=== PATIENT | female | born 1940 | race Caucasian/White ===

== ENCOUNTER 2016-11-25 17:58 | Inpatient (IN) | payer MEDICARE ==
[2016-11-25] MEDS ORDERED: SODIUM CHLORIDE 0.9% 1,000 ML IV ONE (19:55)
[2016-11-25] MEDS ORDERED: HYDROmorphone 1 MG/ML 1 ML SYRINGE IVP STA (19:55)
--- NOTE | 2016-11-25 20:01 | ED ---
Abdominal Pain HPI <Quinton Vila - Last Filed: 11/25/16 22:27> - General Source: patient, RN notes reviewed Mode of arrival: ambulatory Limitations: no limitations <Adrianne Cullen - Last Filed: 11/25/16 23:03> - General Chief Complaint: Abdominal Pain Stated Complaint: abd pain Time Seen by Provider: 11/25/16 19:39 - History of Present Illness Initial Comments: Patient is a 76-year-old female presents emergency room for evaluation of abdominal pain. Patient states been having abdominal pain for the past month. Patient states she went to [facility] about a Week Ago and Was Diagnosed with Diverticulitis. Patient States She's Been on Clindamycin. Patient States Symptoms Began to Improve, but today it began to worsen. Patient states she's having 10 out of 10 pain. Patient denies any current diarrhea. Patient states she did have nausea and vomiting earlier today. Patient denies chest pain or shortness of breath. Patient states she's been having on and off hot flashes. Patient denies headache or dizziness. Patient denies blood in stools. Patient denies dark tarry stools. Patient denies any recent travel outside the country. Patient states she has a history of hysterectomy. Patient denies any other history of abdominal surgeries. (Adrianne Cullen) - Related Data Home Medications Medication Instructions Recorded Confirmed Allopurinol [Zyloprim] 300 mg PO DAILY 02/09/16 11/25/16 Aspirin [Adult Low Dose Aspirin EC] 81 mg PO DAILY 02/09/16 11/25/16 Atenolol [Tenormin] 50 mg PO DAILY 02/09/16 11/25/16 Cholecalciferol [Vitamin D3] 2,000 unit PO DAILY 02/09/16 11/25/16 Colchicine [Colcrys] 0.6 mg PO DAILY PRN 02/09/16 11/25/16 Fish Oil/Dha/Epa [Fish Oil 1,200 2 cap PO DAILY 02/09/16 11/25/16 mg Fish Oil] Folic Acid 1 mg PO DAILY 02/09/16 11/25/16 Hydrochlorothiazide [Hydrodiuril] 50 mg PO DAILY 02/09/16 11/25/16 Methotrexate Sodium [Methotrexate] 12.5 mg PO TH 02/09/16 11/25/16 SUMAtriptan SUCCINATE [Imitrex] 25 mg PO BID PRN 02/09/16 11/25/16 Tri-[place] Plus 2 cap PO DAILY 02/09/16 11/25/16 Ubiquinol 100 mg PO BID 02/09/16 11/25/16 Biotin 2,500 mcg PO DAILY 11/25/16 11/25/16 Clindamycin HCl [Cleocin] 300 mg PO Q8H 11/25/16 11/25/16 Allergies Allergy/AdvReac Type Severity Reaction Status Date / Time Penicillins Allergy Anaphylaxis Verified 11/25/16 20:33 levofloxacin [From Levaquin] AdvReac Severe Tendonitis Verified 11/25/16 20:33 Review of Systems ROS Other: All systems not noted in ROS Statement are negative. <Quinton Vila - Last Filed: 11/25/16 22:27> ROS Other: All systems not noted in ROS Statement are negative. <Adrianne Cullen - Last Filed: 11/25/16 23:03> ROS Statement: Those systems with pertinent positive or pertinent negative responses have been documented in the HPI. Past Medical History Past Medical History: Hypertension, Osteoarthritis (OA), Rheumatoid Arthritis ( RA) Additional Past Medical History / Comment(s): gout, migraines, diverticulitis History of Any Multi-Drug Resistant Organisms: None Reported Past Surgical History: Hysterectomy, Joint Replacement, Orthopedic Surgery, Tonsillectomy Additional Past Surgical History / Comment(s): cataracts, carpal tunel, lt knee Past Psychological History: No Psychological Hx Reported Smoking Status: Never smoker Past Alcohol Use History: Occasional Past Drug Use History: None Reported <Adrianne Cullen - Last Filed: 11/25/16 23:03> General Exam <Quinton Vila - Last Filed: 11/25/16 22:27> Limitations: no limitations General appearance: alert, in no apparent distress Head exam: Present: atraumatic, normocephalic, normal inspection Eye exam: Present: normal appearance ENT exam: Present: normal exam Neck exam: Present: normal inspection Respiratory exam: Present: normal lung sounds bilaterally. Absent: respiratory distress Cardiovascular Exam: Present: regular rate, normal rhythm, normal heart sounds GI/Abdominal exam: Present: soft, tenderness (LLQ), guarding (Voluntary guarding over left lower quadrant), normal bowel sounds. Absent: distended, rebound, rigid Extremities exam: Present: normal inspection Back exam: Present: normal inspection Neurological exam: Present: alert, oriented X3, CN II-XII intact, normal gait Psychiatric exam: Present: normal affect, normal mood Skin exam: Present: warm, dry, intact, normal color. Absent: rash <Adrianne Cullen - Last Filed: 11/25/16 23:03> - General Exam Comments Initial Comments: Sitting in exam room, no acute distress. (Adrianne Cullen) Medical Decision Making - Lab Data Result diagrams: 11/25/16 20:37 11/25/16 20:37 <Quinton Vila - Last Filed: 11/25/16 22:27> - Lab Data Result diagrams: 11/25/16 20:37 11/25/16 20:37 <Adrianne Cullen - Last Filed: 11/25/16 23:03> - Medical Decision Making Medical decision making; patient has been treated with Flagyl and clindamycin for diverticulitis. She reports oral Flagyl is irritating her. She does have ALLERGY to penicillin and Levaquin. Patient was diagnosed at [facility] with diverticulitis. She was initially getting good results with the Flagyl but was had to be switched over to clindamycin because of not tolerating it orally. Examination of the abdomen was soft no rebound or referred pain. The plant this time patient be admitted started on IV Flagyl and cefuroxime. Patient reports no adverse reaction to cephalosporins. Patient will have rehydration and medication for nausea. With consultation from GI. Dr. Vila ( Quinton Vila) - Lab Data Lab Results 11/25/16 11/25/16 11/25/16 Range/Units 20:37 20:37 20:37 WBC 12.8 H (3.8-10.6) k/uL RBC 4.27 (3.80-5.40) m/uL Hgb 13.3 (11.4-16.0) gm/dL Hct 38.9 (34.0-46.0) % MCV 91.0 (80.0-100.0) fL MCH 31.1 (25.0-35.0) pg MCHC 34.1 (31.0-37.0) g/dL RDW 15.9 H (11.5-15.5) % Plt Count 296 (150-450) k/uL Neutrophils % 88 % Lymphocytes % 7 % Monocytes % 4 % Eosinophils % 0 % Basophils % 0 % Neutrophils # 11.2 H (1.3-7.7) k/uL Lymphocytes # 0.9 L (1.0-4.8) k/uL Monocytes # 0.5 (0-1.0) k/uL Eosinophils # 0.1 (0-0.7) k/uL Basophils # 0.0 (0-0.2) k/uL Sodium 138 (137-145) mmol/L Potassium 3.8 (3.5-5.1) mmol/L Chloride 96 L (98-107) mmol/L Carbon Dioxide 28 (22-30) mmol/L Anion Gap 14 mmol/L BUN 21 H (7-17) mg/dL Creatinine 0.80 (0.52-1.04) mg/dL Est GFR (MDRD) Af Amer >60 (>60 ml/min/1.73 sqM) Est GFR (MDRD) Non-Af >60 (>60 ml/min/1.73 sqM) Glucose 135 H (74-99) mg/dL Plasma Lactic Acid Jose Maria (0.7-2.0) mmol/L Calcium 10.4 H (8.4-10.2) mg/dL Total Bilirubin 0.7 (0.2-1.3) mg/dL AST 31 (14-36) U/L ALT 32 (9-52) U/L Alkaline Phosphatase 76 (38-126) U/L Total Protein 6.8 (6.3-8.2) g/dL Albumin 4.1 (3.5-5.0) g/dL Amylase 69 (30-110) U/L Lipase 98 (23-300) U/L Urine Color Urine Appearance (Clear) Urine pH (5.0-8.0) Ur Specific [place] (1.001-1.035) Urine Protein (Negative) Urine Glucose (UA) (Negative) Urine Ketones (Negative) Urine Blood (Negative) Urine Nitrite (Negative) Urine Bilirubin (Negative) Urine Urobilinogen (<2.0) mg/dL Ur Leukocyte Esterase (Negative) 11/25/16 11/25/16 Range/Units 20:37 20:38 WBC (3.8-10.6) k/uL RBC (3.80-5.40) m/uL Hgb (11.4-16.0) gm/dL Hct (34.0-46.0) % MCV (80.0-100.0) fL MCH (25.0-35.0) pg MCHC (31.0-37.0) g/dL RDW (11.5-15.5) % Plt Count (150-450) k/uL Neutrophils % % Lymphocytes % % Monocytes % % Eosinophils % % Basophils % % Neutrophils # (1.3-7.7) k/uL Lymphocytes # (1.0-4.8) k/uL Monocytes # (0-1.0) k/uL Eosinophils # (0-0.7) k/uL Basophils # (0-0.2) k/uL Sodium (137-145) mmol/L Potassium (3.5-5.1) mmol/L Chloride (98-107) mmol/L Carbon Dioxide (22-30) mmol/L Anion Gap mmol/L BUN (7-17) mg/dL Creatinine (0.52-1.04) mg/dL Est GFR (MDRD) Af Amer (>60 ml/min/1.73 sqM) Est GFR (MDRD) Non-Af (>60 ml/min/1.73 sqM) Glucose (74-99) mg/dL Plasma Lactic Acid Jose Maria 1.4 (0.7-2.0) mmol/L Calcium (8.4-10.2) mg/dL Total Bilirubin (0.2-1.3) mg/dL AST (14-36) U/L ALT (9-52) U/L Alkaline Phosphatase (38-126) U/L Total Protein (6.3-8.2) g/dL Albumin (3.5-5.0) g/dL Amylase (30-110) U/L Lipase (23-300) U/L Urine Color Light Yellow Urine Appearance Clear (Clear) Urine pH 7.5 (5.0-8.0) Ur Specific [place] 1.007 (1.001-1.035) Urine Protein Negative (Negative) Urine Glucose (UA) Negative (Negative) Urine Ketones 1+ H (Negative) Urine Blood Negative (Negative) Urine Nitrite Negative (Negative) Urine Bilirubin Negative (Negative) Urine Urobilinogen <2.0 (<2.0) mg/dL Ur Leukocyte Esterase Negative (Negative) Disposition <Quinton Vila - Last Filed: 11/25/16 22:27> Decision Date: 11/25/16 <Adrianne Cullen - Last Filed: 11/25/16 23:03> Clinical Impression: Diverticulitis, Failure of outpatient treatment Disposition: ADMITTED IP TO THIS HOSP Condition: Stable
[2016-11-25 20:55] LABS: Basophils % (A) 0 %; CH 31.3; CHCM 34.5; Eosinophils # (A) 0.1 k/uL (0-0.7); Eosinophils % (A) 0 %; HCT 38.9 % (34.0-46.0); HDW 2.93; HGB 13.3 gm/dL (11.4-16.0); Luc # (Auto) 0.09; Luc % (Auto) 1; Lymphocytes # (A) 0.9 k/uL (1.0-4.8); Lymphocytes % (A) 7 %; MCH 31.1 pg (25.0-35.0); MCHC 34.1 g/dL (31.0-37.0); Mean Platelet Volume 7.1; Monocytes # (A) 0.5 k/uL (0-1.0); Monocytes % (A) 4 %; Neutrophils # (A) 11.2 k/uL (1.3-7.7); Neutrophils % (A) 88 %; RBC 4.27 m/uL (3.80-5.40); RDW 15.9 % (11.5-15.5); WBC 12.8 k/uL (3.8-10.6); WBC (Perox) 12.45
[2016-11-25 21:04] LABS: ALT 32 U/L (9-52); AST 31 U/L (14-36); Alkaline Phosphatase 76 U/L (38-126); Amylase 69 U/L (30-110); Anion Gap 14 mmol/L; Blood Urea Nitrogen 21 mg/dL (7-17); Calcium 10.4 mg/dL (8.4-10.2); Carbon Dioxide 28 mmol/L (22-30); Chloride 96 mmol/L (98-107); Glucose 135 mg/dL (74-99); Non-African American GFR(MDRD) >60 (>60 ml/min/1.73 sqM); Potassium 3.8 mmol/L (3.5-5.1); Sodium 138 mmol/L (137-145); Total Bilirubin 0.7 mg/dL (0.2-1.3); Total Protein 6.8 g/dL (6.3-8.2)
[2016-11-25 21:18] LABS: Appearance,Urine Clear (Clear); Bilirubin,Urine Negative (Negative); Glucose,Urine (UA) Negative (Negative); Ketones,Urine 1+ (Negative); Leukocyte Esterase,Urine Negative (Negative); Nitrite,Urine Negative (Negative); PH, Urine 7.5 (5.0-8.0); Protein,Urine Negative (Negative); Specific Gravity,Urine 1.007 (1.001-1.035); UA Billing (MACRO vs. MICRO) CHEM; Urobilinogen,Urine <2.0 mg/dL (<2.0)
--- NOTE | 2016-11-25 21:51 | XR ---
History: Reason: Pain Exam: XR KUB 2 supine images to include the entire abdomen and pelvis Comparison: None available FINDINGS: No gaseous distention of bowel seen. No evidence of mass effect or abnormal abdominal calcification. Lumbar spondylosis/discogenic change noted. The visualized lung bases are clear. IMPRESSION: No gaseous distention of bowel seen. No evidence of mass effect or abnormal abdominal calcification.
[2016-11-25] MEDS ORDERED: HYDROmorphone 1 MG/ML 1 ML SYRINGE IV PRN (22:32)
[2016-11-25] MEDS ORDERED: NALOXONE 0.4 MG/ML 1 ML VIAL IV PRN (22:32)
[2016-11-25] MEDS ORDERED: ACETAMINOPHEN TAB 325 MG TAB PO PRN (22:32)
[2016-11-25] MEDS ORDERED: ONDANSETRON 4 MG/2 ML VIAL IVP PRN (22:32)
[2016-11-25] MEDS: SODIUM CHLORIDE 0.9% 1,000 ML IV SCH (23:10)
[2016-11-25] MEDS: metroNIDAZOLE-NS PMX 500 MG in SALINE 1 100ML.BAG IVPB SCH (23:38)
[2016-11-26 00:54] VITALS: BMI 20.7
[2016-11-26] MEDS: CEFUROXIME 1,500 MG in SODIUM CHLORIDE 0.9% 50 ML IVPB SCH ×3 (01:21→18:00)
[2016-11-26 06:14] LABS: Basophils % (A) 0 %; CH 31.1; CHCM 34.5; Eosinophils # (A) 0.1 k/uL (0-0.7); Eosinophils % (A) 1 %; HCT 33.7 % (34.0-46.0); HDW 2.92; HGB 11.4 gm/dL (11.4-16.0); Luc # (Auto) 0.12; Luc % (Auto) 1; Lymphocytes # (A) 1.4 k/uL (1.0-4.8); Lymphocytes % (A) 16 %; MCH 30.6 pg (25.0-35.0); MCHC 33.7 g/dL (31.0-37.0); MCV 90.6 fL (80.0-100.0); Mean Platelet Volume 6.8; Monocytes # (A) 0.4 k/uL (0-1.0); Monocytes % (A) 5 %; Neutrophils # (A) 7.1 k/uL (1.3-7.7); Neutrophils % (A) 77 %; RBC 3.72 m/uL (3.80-5.40); RDW 15.7 % (11.5-15.5); WBC 9.2 k/uL (3.8-10.6); WBC (Perox) 9.13
[2016-11-26 06:36] LABS: ALT 28 U/L (9-52); AST 21 U/L (14-36); Alkaline Phosphatase 57 U/L (38-126); Anion Gap 7 mmol/L; Blood Urea Nitrogen 18 mg/dL (7-17); Calcium 9.2 mg/dL (8.4-10.2); Carbon Dioxide 29 mmol/L (22-30); Chloride 100 mmol/L (98-107); Glucose 100 mg/dL (74-99); Non-African American GFR(MDRD) >60 (>60 ml/min/1.73 sqM); Potassium 3.5 mmol/L (3.5-5.1); Sodium 136 mmol/L (137-145); Total Bilirubin 0.5 mg/dL (0.2-1.3); Total Protein 5.4 g/dL (6.3-8.2)
[2016-11-26] MEDS ORDERED: SUMAtriptan SUCCINATE 25 MG TAB PO PRN (08:53)
[2016-11-26] MEDS ORDERED: UBIQUINOL 100 MG PO SCH (09:00)
[2016-11-26] MEDS ORDERED: BIOTIN 2500 MCG PO SCH (09:00)
[2016-11-26] MEDS ORDERED: [UNRECOGNIZED DRUG - OTHER] PO SCH (09:00)
[2016-11-26] MEDS: metroNIDAZOLE-NS PMX 500 MG in SALINE 1 100ML.BAG IVPB SCH ×4 (09:20→22:26)
[2016-11-26] MEDS ORDERED: NON-FORMULARY DRUG (Clindamycin Hcl [Cleocin] 300 MG) PO SCH (09:30)
[2016-11-26] MEDS ORDERED: CLINDAMYCIN 150 MG CAP PO SCH (09:30)
--- NOTE | 2016-11-26 10:25 | P.GSCN ---
History of Present Illness Consult date: 11/26/16 Reason for Consult: Abdominal pain History of present illness: The patient is a 76-year-old white female who presented to the emergency room with a complaint of increased left lower quadrant abdominal discomfort. The patient states that the pain started approximately 4 weeks ago while she was in [place]. She had previously undergone a pelvic floor repair several years ago in [place] and saw her healthcare administrator there. The pain did not resolve and she was seen at [facility] [place] and treated for diverticular disease with Flagyl. A CAT scan had been performed at [facility] which by history was consistent with diverticular disease. The patient developed nausea on the Flagyl and stopped this and her physician from [place] called in a prescription for clindamycin approximately 5 days ago. The patient's pain recurred on the clindamycin and she presented to the emergency room. The patient denies any fever but she has had chills. She denies any nausea at this time. The pain was located in the left lower quadrant. It did not radiate. It was sharp but intermittent in nature. The patient's last colonoscopy was approximately 2 years ago and she does not recall any bleeding of concern being discussed with her. Past surgical history: 1. Hysterectomy approximately 3 years ago does not know if this was removed 2. A pelvic floor repair approximately 2 years ago performed in [place] does not know if she has mesh present Past medical history: 1. Psoriatic arthritis 2. Hypertension 3. Gout Medications: 1. Methotrexate 2. Atenolol 3. Hydrochlorothiazide 4. Allopurinol ALLERGIES: 1. Levaquin 2. Penicillin Social history: Smoking negative Alcohol negative Marijuana negative 2 pregnancies 2 children Review of systems: HEENT: Negative Lungs: Negative Heart: Negative GI: As above : As above Review of Systems - Constitutional Reports as per HPI - Cardiovascular Reports as per HPI - Gastrointestinal Gastrointestinal Comment(s): Diverticular disease Reports as per HPI - Genitourinary Genitourinary Comment(s): Status post hysterectomy Pelvic floor repair Past Medical History Past Medical History: Hypertension, Osteoarthritis (OA), Rheumatoid Arthritis ( RA) Additional Past Medical History / Comment(s): gout, migraines, diverticulitis History of Any Multi-Drug Resistant Organisms: None Reported Past Surgical History: Hysterectomy, Joint Replacement, Orthopedic Surgery, Tonsillectomy Additional Past Surgical History / Comment(s): cataracts, carpal tunel, lt knee , complete repair of abdominal vault Past Anesthesia/Blood Transfusion Reactions: No Reported Reaction Past Psychological History: No Psychological Hx Reported Smoking Status: Never smoker Past Alcohol Use History: Occasional Past Drug Use History: None Reported - Past Family History Mother Family Medical History: No Reported History Medications and Allergies Home Medications Medication Instructions Recorded Confirmed Type Allopurinol [Zyloprim] 300 mg PO DAILY 02/09/16 11/26/16 History Aspirin [Adult Low Dose Aspirin EC] 81 mg PO DAILY 02/09/16 11/26/16 History Atenolol [Tenormin] 50 mg PO DAILY 02/09/16 11/26/16 History Cholecalciferol [Vitamin D3] 2,000 unit PO DAILY 02/09/16 11/26/16 History Colchicine [Colcrys] 0.6 mg PO DAILY PRN 02/09/16 11/26/16 History Fish Oil/Dha/Epa [Fish Oil 1,200 2 cap PO DAILY 02/09/16 11/26/16 History mg Fish Oil] Folic Acid 1 mg PO BID 02/09/16 11/26/16 History Hydrochlorothiazide [Hydrodiuril] 50 mg PO DAILY 02/09/16 11/26/16 History Methotrexate Sodium [Methotrexate] 12.5 mg PO TH 02/09/16 11/26/16 History SUMAtriptan SUCCINATE [Imitrex] 25 mg PO BID PRN 02/09/16 11/26/16 History Tri-[place] Plus 2 cap PO DAILY 02/09/16 11/26/16 History Ubiquinol 100 mg PO BID 02/09/16 11/26/16 History Biotin 2,500 mcg PO DAILY 11/25/16 11/26/16 History Clindamycin HCl [Cleocin] 300 mg PO Q8H 11/25/16 11/26/16 History Allergies Allergy/AdvReac Type Severity Reaction Status Date / Time Penicillins Allergy Anaphylaxis Verified 11/26/16 00:59 levofloxacin [From Levaquin] AdvReac Severe Tendonitis Verified 11/26/16 00:59 Surgical - Exam Vital Signs Temp Pulse Resp BP Pulse Ox 99.5 F 75 18 192/88 100 11/25/16 19:01 11/25/16 19:01 11/25/16 19:01 11/25/16 19:01 11/25/16 19:01 - General well developed, no distress - Neck no masses, trachea midline, no lymphadectomy, no venous distension - Respiratory normal expansion, normal respiratory effort, clear to percussion, clear to auscultation - Cardiovascular Rhythm: regular Heart Sounds: normal: S1, S2 - Abdomen Mild tenderness left lower quadrant no guarding or rebound Abdomen: soft, bowel sounds - Psychiatric oriented to time, oriented to person, oriented to place, speech is normal Results - Labs 11/26/16 05:56 11/26/16 05:56 Abnormal Lab Results - Last 24 Hours (Table) 11/25/16 11/25/16 11/25/16 Range/Units 20:37 20:37 20:38 WBC 12.8 H (3.8-10.6) k/uL RBC (3.80-5.40) m/uL Hct (34.0-46.0) % RDW 15.9 H (11.5-15.5) % Neutrophils # 11.2 H (1.3-7.7) k/uL Lymphocytes # 0.9 L (1.0-4.8) k/uL Sodium (137-145) mmol/L Chloride 96 L (98-107) mmol/L BUN 21 H (7-17) mg/dL Glucose 135 H (74-99) mg/dL Calcium 10.4 H (8.4-10.2) mg/dL Total Protein (6.3-8.2) g/dL Albumin (3.5-5.0) g/dL Urine Ketones 1+ H (Negative) 11/26/16 11/26/16 Range/Units 05:56 05:56 WBC (3.8-10.6) k/uL RBC 3.72 L (3.80-5.40) m/uL Hct 33.7 L (34.0-46.0) % RDW 15.7 H (11.5-15.5) % Neutrophils # (1.3-7.7) k/uL Lymphocytes # (1.0-4.8) k/uL Sodium 136 L (137-145) mmol/L Chloride (98-107) mmol/L BUN 18 H (7-17) mg/dL Glucose 100 H (74-99) mg/dL Calcium (8.4-10.2) mg/dL Total Protein 5.4 L (6.3-8.2) g/dL Albumin 3.0 L (3.5-5.0) g/dL Urine Ketones (Negative) Diabetes panel 11/25/16 11/26/16 Range/Units 20:37 05:56 Sodium 138 136 L (137-145) mmol/L Potassium 3.8 3.5 (3.5-5.1) mmol/L Chloride 96 L 100 (98-107) mmol/L Carbon Dioxide 28 29 (22-30) mmol/L BUN 21 H 18 H (7-17) mg/dL Creatinine 0.80 0.80 (0.52-1.04) mg/dL Glucose 135 H 100 H (74-99) mg/dL Calcium 10.4 H 9.2 (8.4-10.2) mg/dL AST 31 21 (14-36) U/L ALT 32 28 (9-52) U/L Alkaline Phosphatase 76 57 (38-126) U/L Total Protein 6.8 5.4 L (6.3-8.2) g/dL Albumin 4.1 3.0 L (3.5-5.0) g/dL Calcium panel 11/25/16 11/26/16 Range/Units 20:37 05:56 Calcium 10.4 H 9.2 (8.4-10.2) mg/dL Albumin 4.1 3.0 L (3.5-5.0) g/dL Pituitary panel 11/25/16 11/26/16 Range/Units 20:37 05:56 Sodium 138 136 L (137-145) mmol/L Potassium 3.8 3.5 (3.5-5.1) mmol/L Chloride 96 L 100 (98-107) mmol/L Carbon Dioxide 28 29 (22-30) mmol/L BUN 21 H 18 H (7-17) mg/dL Creatinine 0.80 0.80 (0.52-1.04) mg/dL Glucose 135 H 100 H (74-99) mg/dL Calcium 10.4 H 9.2 (8.4-10.2) mg/dL Adrenal panel 11/25/16 11/26/16 Range/Units 20:37 05:56 Sodium 138 136 L (137-145) mmol/L Potassium 3.8 3.5 (3.5-5.1) mmol/L Chloride 96 L 100 (98-107) mmol/L Carbon Dioxide 28 29 (22-30) mmol/L BUN 21 H 18 H (7-17) mg/dL Creatinine 0.80 0.80 (0.52-1.04) mg/dL Glucose 135 H 100 H (74-99) mg/dL Calcium 10.4 H 9.2 (8.4-10.2) mg/dL Total Bilirubin 0.7 0.5 (0.2-1.3) mg/dL AST 31 21 (14-36) U/L ALT 32 28 (9-52) U/L Alkaline Phosphatase 76 57 (38-126) U/L Total Protein 6.8 5.4 L (6.3-8.2) g/dL Albumin 4.1 3.0 L (3.5-5.0) g/dL - Imaging Abdominal x-ray: report reviewed Assessment and Plan Plan: I impression/plan: 1. Left lower quadrant abdominal pain most likely diverticular in nature 2. History of gout 3. History of hypertension 4. Psoriatic arthritis Plan: 1. Patient does not have an acute surgical abdomen at this time would agree with treatment with antibiotics 2. Medical management of hypertension 3. We will follow
[2016-11-26] MEDS: ASPIRIN 81 MG CHEW PO SCH (10:46)
[2016-11-26] MEDS: FOLIC ACID 1 MG TAB PO SCH ×2 (10:46→21:16)
[2016-11-26] MEDS: ATENOLOL 50 MG TAB PO SCH (10:46)
[2016-11-26] MEDS: ALLOPURINOL 300 MG TAB PO SCH (10:46)
[2016-11-26] MEDS: HYDROCHLOROTHIAZIDE 50 MG TAB PO SCH (10:46)
[2016-11-26] MEDS: CHOLECALCIFEROL 1,000 UNIT TAB PO SCH (12:15)
[2016-11-26] MEDS: SODIUM CHLORIDE 0.9% 1,000 ML IV SCH (12:15)
[2016-11-26] MEDS ORDERED: RX INFO: IV CONTRAST WAS GIVEN 1 EACH MISC MISCELLANE PRN (13:15)
[2016-11-26] MEDS: IOHEXOL 350 MG/ML 25 ML BOTTLE (ORAL USE) PO PRN ×2 (14:11→14:59)
--- NOTE | 2016-11-26 16:52 | CT ---
EXAMINATION TYPE: CT abdomen pelvis w con DATE OF EXAM: 11/26/2016 4:28 PM COMPARISON: NONE HISTORY: 76-year-old female complains of LUQ pain. Evaluate for diverticulitis and microperforation. TECHNIQUE: Contiguous axial scanning of the abdomen and pelvis following administration of 100 ml Omn ipaque 300 IV contrast. Delayed images through the kidneys and coronal/sagittal reconstructions perf ormed. CT DLP: 413.8 mGycm Automated exposure control for dose reduction was used. FINDINGS: The heart is normal size without pericardial effusion. Strandy atelectasis or scarring at the periphe ral left base. There is suggestion of a trace left effusion as well. There is a small hiatal hernia. No focal liver lesion or biliary ductal dilatation. Portal venous system is patent. Junctional fold within the gallbladder. Adrenal glands, right kidney, spleen, and mildly atrophic chavarria creas show no gross abnormality. There is slightly greater degree of atrophy of the pancreatic head r egion. There is mild left-sided hydronephrosis with a delayed excretion of contrast from the left kidney and mild hydroureter as well. No dilated small bowel or free air. No mesenteric or retroperitoneal lymphadenopathy seen. Bladder is partially urine distended. There is mild pelvic free fluid. There is approximately 10 cm long segment of proximal to mid sigmoid colon involved with moderate cir cumferential wall thickening and surrounding inflammatory fat stranding and tracking edema. There are diverticula in this region. No free air or well-formed fluid collection is identified. There ureter tracks lateral and inferior to this inflammation. Some inflammatory fluid extending into a small left inguinal hernia. Bones: Hypertrophic facet arthropathy throughout. There is vascular disease and grade 1 anterolisthes is at L2-L3 and grade 1, nearly grade 2 at L3-L4. No osseous destructive process. IMPRESSION: 1. MODERATE TO SEVERE INFLAMMATION ALONG A 10 CM LONG SEGMENT OF PROXIMAL TO MID SIGMOID COLON. GIVEN THE DIVERTICULOSIS, ACUTE DIVERTICULITIS IS SUGGESTED. OTHER INFECTIOUS OR INFLAMMATORY COLITIS IS A LSO POSSIBLE. RECOMMEND DIRECT VISUALIZATION AFTER SUCCESSFUL TREATMENT TO EXCLUDE AN INFLAMMATORY CO CARL CANCER. 2. NO ABSCESS OR FREE AIR. MILD INFLAMMATORY FREE FLUID WITHIN THE PELVIS. 3. THE INFLAMMATION CAUSES A RELATIVE OBSTRUCTION OF THE DISTAL LEFT URETER WITH MILD LEFT HYDRONEPHR OSIS.
--- NOTE | 2016-11-26 17:16 | HP ---
DATE OF ADMISSION: 11/25/2016 PRESENTING COMPLAINT: Abdominal pain. HISTORY OF PRESENTING COMPLAINT: This is a very pleasant 76-year-old patient. Patient was about 2 weeks ago at [facility] ER with abdominal pain and was diagnosed to have diverticulitis, given Flagyl. She started feeling better after taking it, and then she had some more pain and discomfort, nausea, vomiting. She called her family doctor in [place], who told her to take clindamycin. Yesterday patient had severe increased abdominal pain, nausea, vomiting, felt some chills, and decided to come in. Patient was put on IV antibiotics, including IV Flagyl. Patient had some loose stools here and there, she says; not much. Feeling weak, tired, rundown. REVIEW OF SYSTEMS: CONSTITUTIONAL: Weak and tired. HEENT: None. RESPIRATORY: None. CARDIOVASCULAR: None. GASTROINTESTINAL: As above. GENITOURINARY: None. MUSCULOSKELETAL: Some aches and pains in the joint. DERMATOLOGIC: None. HEMATOLOGIC: None. LYMPHATICS: None. PSYCHIATRY: None. NEUROLOGICAL: None. PAST MEDICAL HISTORY: 1. Hypertension. 2. Osteoarthritis. 3. Gout. PAST SURGICAL HISTORY: 1. Hysterectomy. 2. Joint replacement. 3. Tonsillectomy. 4. Cataracts. 5. Carpal tunnel. 6. Left knee. 7. Complete repair of the abdominal wall. SOCIAL HISTORY: Patient lives 6 [place] in [place]. Her is currently in [place]. Does not smoke. Drinks alcohol occasionally. FAMILY HISTORY: Reviewed; noncontributory to presentation. HOME MEDICATIONS: 1. Ubiquinol 100 mg p.o. b.i.d. 2. Tri-[place] Plus 2 capsules p.o. daily. 3. Imitrex 25 mg p.o. b.i.d. p.r.n. 4. Methotrexate 12.5 p.o. . 5. Hydrochlorothiazide 50 mg p.o. daily. 6. Folic acid 1 mg p.o. b.i.d. 7. Fish oil 2 capsules p.o. daily. 8. Colchicine 0.6 mg p.o. daily. 9. Clindamycin 300 mg p.o. q.8. 10. Vitamin D3 2000 units p.o. daily. 11. Biotin 2500 mcg p.o. daily. 12. Tenormin 50 mg p.o. daily. 13. Aspirin 81 mg p.o. daily. 14. Allopurinol 300 mg p.o. daily. ALLERGIES: 1. PENICILLIN. 2. LEVAQUIN. On examination, afebrile. Pulse 94, respiration 16, blood pressure 166/79, pulse ox 95% on room air on presentation. GENERAL APPEARANCE: Average build. Lying in bed. Tired-appearing. EYES: Pupils equal. Conjunctivae normal. HEENT: External appearance of nose and ears normal. Oral cavity normal. NECK: JVD not raised. Mass not palpable. RESPIRATORY: Effort normal. Lungs are clear. CARDIOVASCULAR: First and second sounds normal. No edema. ABDOMEN: Left lower quadrant tenderness. No guarding or rigidity. Liver and spleen not palpable. LYMPHATIC: No lymph node palpable in neck or axillae. PSYCHIATRY: Alert and oriented x3. Mood and affect normal. NEUROLOGICAL: Pupils equal. Cranial nerves grossly intact. Power and sensation grossly intact. INVESTIGATIONS: White count 12.8, hemoglobin 13.3. Potassium 3.8. KUB non-specific. ASSESSMENT: 1. Acute diverticulitis in a patient who did have 2 weeks of outpatient treatment, having failed this; sent in with acute presentation, feeling some chills. White count. Clinical exam of the abdomen reveals some tenderness but no guarding or rigidity. Would like to do a CT scan to rule out any microabscess, especially since this has lasted for a good 2 weeks. 2. Essential hypertension. 3. Primary osteoarthritis in multiple joints bilaterally. 4. Chronic gout. Patient is on colchicine. PLAN: Patient is currently on IV antibiotics, including IV cefuroxime and IV Flagyl. Will change the patient to a clear liquid diet until I get the CT scan done and go from there. General Surgery, Dr. Myriam Gramajo, was consulted.
[2016-11-27] MEDS: CEFUROXIME 1,500 MG in SODIUM CHLORIDE 0.9% 50 ML IVPB SCH ×3 (00:50→15:55)
[2016-11-27] MEDS: SODIUM CHLORIDE 0.9% 1,000 ML IV SCH (04:07)
[2016-11-27 07:24] LABS: Basophils % (A) 0 %; CH 30.7; CHCM 33.2; Eosinophils # (A) 0.2 k/uL (0-0.7); Eosinophils % (A) 4 %; HCT 34.6 % (34.0-46.0); HDW 2.79; HGB 11.5 gm/dL (11.4-16.0); Luc # (Auto) 0.09; Luc % (Auto) 2; Lymphocytes # (A) 1.6 k/uL (1.0-4.8); Lymphocytes % (A) 29 %; MCH 30.9 pg (25.0-35.0); MCHC 33.3 g/dL (31.0-37.0); MCV 92.9 fL (80.0-100.0); Monocytes # (A) 0.3 k/uL (0-1.0); Monocytes % (A) 6 %; Neutrophils # (A) 3.3 k/uL (1.3-7.7); Neutrophils % (A) 60 %; RBC 3.72 m/uL (3.80-5.40); RDW 15.7 % (11.5-15.5); WBC 5.5 k/uL (3.8-10.6); WBC (Perox) 5.62
[2016-11-27 07:37] LABS: Anion Gap 8 mmol/L; Blood Urea Nitrogen 14 mg/dL (7-17); Calcium 9.1 mg/dL (8.4-10.2); Carbon Dioxide 29 mmol/L (22-30); Chloride 103 mmol/L (98-107); Glucose 87 mg/dL (74-99); Non-African American GFR(MDRD) >60 (>60 ml/min/1.73 sqM); Potassium 3.5 mmol/L (3.5-5.1); Sodium 140 mmol/L (137-145)
[2016-11-27] MEDS: ALLOPURINOL 300 MG TAB PO SCH (08:14)
[2016-11-27] MEDS: ASPIRIN 81 MG CHEW PO SCH (08:14)
[2016-11-27] MEDS: FOLIC ACID 1 MG TAB PO SCH ×2 (08:14→21:34)
[2016-11-27] MEDS: ATENOLOL 50 MG TAB PO SCH (08:14)
[2016-11-27] MEDS: HYDROCHLOROTHIAZIDE 50 MG TAB PO SCH (08:14)
--- NOTE | 2016-11-27 08:29 | P.PN ---
Subjective Patient is a 76-year-old white female admitted with left lower quadrant abdominal pain and presumptive diverticulitis. She states at this time the pain is markedly improved and she is tolerating her diet without difficulty. She did undergo a computed tomography scan of the abdomen yesterday which revealed moderate to severe inflammation along a 10 cm segment of the proximal to mid sigmoid colon consistent with diverticulitis. Recommendation of colonoscopy following resolution of symptoms was made. No abscess or free air mild inflammatory free fluid within the pelvis. The inflammation was causing a relative obstruction of the distal left ureter with mild left hydronephrosis. Objective - Vital Signs Vital signs: Vital Signs Temp 99.2 F 11/27/16 07:25 Pulse 71 11/27/16 07:25 Resp 16 11/27/16 07:25 BP 117/55 11/27/16 07:25 Pulse Ox 97 11/27/16 07:25 Intake & Output 11/26/16 11/27/16 11/27/16 18:59 06:59 18:59 Intake Total 550 Output Total 800 Balance -250 Intake: Oral 550 Output: Urine 800 Other: # Voids 2 2 - Constitutional General appearance: Present: average body habitus, no acute distress - Respiratory Respiratory: bilateral: CTA - Cardiovascular Rhythm: regular Heart sounds: normal: S1, S2 - Gastrointestinal Gastrointestinal Comment(s): No guarding or rebound General gastrointestinal: Present: normal bowel sounds, soft - Labs CBC & Chem 7: 11/27/16 06:49 11/27/16 06:49 Labs: Abnormal Lab Results - Last 24 Hours (Table) 11/27/16 Range/Units 06:49 RBC 3.72 L (3.80-5.40) m/uL RDW 15.7 H (11.5-15.5) % Microbiology - Last 24 Hours (Table) 11/26/16 05:56 Blood Culture - Preliminary Blood No Growth after 24 hours Assessment and Plan Plan: I impression/plan: 1. Left lower quadrant abdominal pain most likely diverticular in nature 2. History of gout 3. History of hypertension 4. Psoriatic arthritis Plan: 1. Patient does not have an acute surgical abdomen at this time would agree with treatment with antibiotics 2. Medical management of hypertension 3. Computed tomography scan findings reviewed 4. Probable changed to oral antibiotics and discharged home as per medicine 5. Outpatient colonoscopy
[2016-11-27] MEDS: metroNIDAZOLE-NS PMX 500 MG in SALINE 1 100ML.BAG IVPB SCH ×4 (10:57→22:06)
--- NOTE | 2016-11-27 11:30 | P.CONS ---
History of Present Illness - Reason for Consult Consult date: 11/26/16 - History of Present Illness The patient is a 76-year-old female who presented to the emergency room for evaluation of abdominal pain of 1 month duration. Patient states she went to [facility] about a week prior and Was diagnosed with acute diverticulitis. Patient stated she was given Clindamycin. Her symptoms initially improved but then worsened making her come to this hospital. Patient denies any current diarrhea. Patient states she did have nausea and vomiting earlier on the day of admission. Patient denies chest pain or shortness of breath. Patient denies blood in stools. Patient denies dark tarry stools. Patient states she has a history of hysterectomy. Patient denies any other history of abdominal surgeries. Review of Systems CARDIOPULMONARY: No chest pain or shortness of breath. GENITOURINARY: No dysuria or hematuria. MUSCULOSKELETAL: Unremarkable. SKIN: Unremarkable. ENDOCRINE: Unremarkable. PSYCHIATRIC: Unremarkable. NEUROLOGY: Unremarkable. ENT: Vision unremarkable. CONSTITUTIONAL: No recent weight loss. No fever, chills, night sweats. Past Medical History Past Medical History: Hypertension, Osteoarthritis (OA), Rheumatoid Arthritis ( RA) Additional Past Medical History / Comment(s): gout, migraines, diverticulitis History of Any Multi-Drug Resistant Organisms: None Reported Past Surgical History: Hysterectomy, Joint Replacement, Orthopedic Surgery, Tonsillectomy Additional Past Surgical History / Comment(s): cataracts, carpal tunel, lt knee , complete repair of abdominal vault Past Anesthesia/Blood Transfusion Reactions: No Reported Reaction Past Psychological History: No Psychological Hx Reported Smoking Status: Never smoker Past Alcohol Use History: Occasional Past Drug Use History: None Reported - Past Family History Mother Family Medical History: No Reported History Medications and Allergies Home Medications Medication Instructions Recorded Confirmed Type Allopurinol [Zyloprim] 300 mg PO DAILY 02/09/16 11/26/16 History Aspirin [Adult Low Dose Aspirin EC] 81 mg PO DAILY 02/09/16 11/26/16 History Atenolol [Tenormin] 50 mg PO DAILY 02/09/16 11/26/16 History Cholecalciferol [Vitamin D3] 2,000 unit PO DAILY 02/09/16 11/26/16 History Colchicine [Colcrys] 0.6 mg PO DAILY PRN 02/09/16 11/26/16 History Fish Oil/Dha/Epa [Fish Oil 1,200 2 cap PO DAILY 02/09/16 11/26/16 History mg Fish Oil] Folic Acid 1 mg PO BID 02/09/16 11/26/16 History Hydrochlorothiazide [Hydrodiuril] 50 mg PO DAILY 02/09/16 11/26/16 History Methotrexate Sodium [Methotrexate] 12.5 mg PO TH 02/09/16 11/26/16 History SUMAtriptan SUCCINATE [Imitrex] 25 mg PO BID PRN 02/09/16 11/26/16 History Tri-[place] Plus 2 cap PO DAILY 02/09/16 11/26/16 History Ubiquinol 100 mg PO BID 02/09/16 11/26/16 History Biotin 2,500 mcg PO DAILY 11/25/16 11/26/16 History Clindamycin HCl [Cleocin] 300 mg PO Q8H 11/25/16 11/26/16 History Allergies Allergy/AdvReac Type Severity Reaction Status Date / Time Penicillins Allergy Anaphylaxis Verified 11/26/16 00:59 levofloxacin [From Levaquin] AdvReac Severe Tendonitis Verified 11/26/16 00:59 Physical Exam Vitals: Vital Signs Temp Pulse Pulse Resp BP BP Pulse Ox 11/26/16 17:10 98.0 F 69 16 127/52 98 11/26/16 12:59 98.2 F 62 16 112/57 98 11/26/16 08:30 97.9 F 66 16 121/55 98 11/26/16 00:32 98.0 F 73 18 136/69 97 11/25/16 23:45 97.8 F 80 20 160/68 98 11/25/16 23:12 97.3 F L 94 16 166/79 95 11/25/16 21:14 98.0 F 77 16 173/74 97 Intake and Output 11/26/16 11/26/16 11/26/16 06:59 14:59 22:59 Intake Total 550 Output Total 450 800 Balance -450 550 -800 Intake: Oral 550 Output: Urine 450 800 Other: # Voids 2 2 Weight 59.874 kg On physical examination, patient appears comfortable in no apparent distress. Vital signs are stable. HEENT: Unremarkable. Conjunctivae pink. Sclerae anicteric. Oral cavity no lesions. NECK: No JVD or lymph node enlargement. CHEST: Clear to auscultation. HEART: Regular rate and rhythm. ABDOMEN: Soft. Bowel sounds are positive. No organomegaly. EXTREMITIES: No pedal edema. SKIN: No rashes. NEUROLOGIC: Alert and oriented x3. No focal deficits. Results CBC & Chem 7: 11/27/16 06:49 11/27/16 06:49 Labs: Abnormal Lab Results - Last 24 Hours (Table) 11/25/16 11/25/16 11/25/16 Range/Units 20:37 20:37 20:38 WBC 12.8 H (3.8-10.6) k/uL RBC (3.80-5.40) m/uL Hct (34.0-46.0) % RDW 15.9 H (11.5-15.5) % Neutrophils # 11.2 H (1.3-7.7) k/uL Lymphocytes # 0.9 L (1.0-4.8) k/uL Sodium (137-145) mmol/L Chloride 96 L (98-107) mmol/L BUN 21 H (7-17) mg/dL Glucose 135 H (74-99) mg/dL Calcium 10.4 H (8.4-10.2) mg/dL Total Protein (6.3-8.2) g/dL Albumin (3.5-5.0) g/dL Urine Ketones 1+ H (Negative) 11/26/16 11/26/16 Range/Units 05:56 05:56 WBC (3.8-10.6) k/uL RBC 3.72 L (3.80-5.40) m/uL Hct 33.7 L (34.0-46.0) % RDW 15.7 H (11.5-15.5) % Neutrophils # (1.3-7.7) k/uL Lymphocytes # (1.0-4.8) k/uL Sodium 136 L (137-145) mmol/L Chloride (98-107) mmol/L BUN 18 H (7-17) mg/dL Glucose 100 H (74-99) mg/dL Calcium (8.4-10.2) mg/dL Total Protein 5.4 L (6.3-8.2) g/dL Albumin 3.0 L (3.5-5.0) g/dL Urine Ketones (Negative) Assessment and Plan Plan: Plan: Picture consistent with acute diverticulitis. No suggestion of complicated course. Patient already on antibiotics with gradual improvement. She is scheduled to have a CT of the abdomen and pelvis today. Will review and make further plans based on her course and CT results.
[2016-11-27] MEDS: CHOLECALCIFEROL 1,000 UNIT TAB PO SCH (13:23)
--- NOTE | 2016-11-27 17:27 | PN ---
DATE OF SERVICE: 11/27/2016 PRESENTING COMPLAINT: Abdominal pain. INTERVAL HISTORY: This patient presented with diverticulitis, failed outpatient treatment. Today patient is resting comfortably in the bed. Patient states she can tolerate her diet, ambulating in the hallways. Pain is well controlled. Review of systems done for constitutional, cardiovascular, GI, and pulmonary with relevant findings as above. Current medications: Cefuroxime, HydroDIURIL, Dilaudid, methotrexate, metronidazole, Imitrex. PHYSICAL EXAMINATION: VITAL SIGNS: Temperature 99.2, pulse 71, respiratory rate 16, blood pressure 117/55, oxygen saturation 97% on room air. GENERAL APPEARANCE: Patient lying in bed, appears comfortable. No pain or distress noted. EYES: Pupils equal. Conjunctivae normal. NECK: JVD not raised. Mass not palpable. LUNGS: Diminished to the bases. Clear to auscultation to upper lobes bilaterally. RESPIRATORY: Effort normal, unlabored. CARDIOVASCULAR: S1, S2 normal. No edema. ABDOMEN: Tender to the left lower quadrant. Liver and spleen not palpable. PSYCHIATRY: Alert and oriented x3. Mood and affect are normal. INVESTIGATIONS: White blood cell count 5.5, hemoglobin 11.5, platelet count 287, sodium 140, potassium 3.5, BUN 14, creatinine 0.80. CT scan dated 11/26/2016 moderate to severe inflammation along the 10 centimeter long segment proximal to sigmoid colon. No abscess or free air. ASSESSMENT: 1. Acute diverticulitis failed outpatient treatment, improving. 2. Essential hypertension. 3. Primary osteoarthritis of multiple joints bilaterally. 4. Chronic gout. PH patient is on colchicine. PLAN: Continue IV antibiotics and advance diet. GI and surgery both feel that this is not an acute surgical abdomen requiring any type of surgery at this time. However, both also agree antibiotics are the appropriate treatment at this time and will continue. Plan: Discharge in 1 to 2 days. Will follow. Patient was seen and examined by nurse practitioner, Shavon Headley, and all elements of the case discussed with Dr. Matute. I performed a history and physical examination of this patient and discussed the same with the dictator. I agree with the dictator's note. Any additional findings/opinions, etc. will be noted.
[2016-11-28] MEDS: CEFUROXIME 1,500 MG in SODIUM CHLORIDE 0.9% 50 ML IVPB SCH ×3 (00:14→16:20)
[2016-11-28] MEDS: SODIUM CHLORIDE 0.9% 1,000 ML IV SCH (05:56)
[2016-11-28 07:53] LABS: Anion Gap 9 mmol/L; Blood Urea Nitrogen 14 mg/dL (7-17); Calcium 8.9 mg/dL (8.4-10.2); Carbon Dioxide 27 mmol/L (22-30); Chloride 103 mmol/L (98-107); Glucose 86 mg/dL (74-99); Non-African American GFR(MDRD) >60 (>60 ml/min/1.73 sqM); Potassium 3.3 mmol/L (3.5-5.1); Sodium 139 mmol/L (137-145)
[2016-11-28] MEDS: ALLOPURINOL 300 MG TAB PO SCH (07:57)
[2016-11-28] MEDS: HYDROCHLOROTHIAZIDE 50 MG TAB PO SCH (07:57)
[2016-11-28] MEDS: ASPIRIN 81 MG CHEW PO SCH (07:58)
[2016-11-28] MEDS: ATENOLOL 50 MG TAB PO SCH (07:58)
[2016-11-28] MEDS: FOLIC ACID 1 MG TAB PO SCH ×2 (07:58→21:21)
--- NOTE | 2016-11-28 08:25 | P.PN ---
Subjective Patient is a 76-year-old white female admitted with left lower quadrant abdominal pain and presumptive diverticulitis. She states at this time the pain is markedly improved and she is tolerating her diet without difficulty. She did undergo a computed tomography scan of the abdomen which revealed moderate to severe inflammation along a 10 cm segment of the proximal to mid sigmoid colon consistent with diverticulitis. Recommendation of colonoscopy following resolution of symptoms was made. No abscess or free air mild inflammatory free fluid within the pelvis. The inflammation was causing a relative obstruction of the distal left ureter with mild left hydronephrosis. Patient became nauseated yesterday when her diet was advanced. Her white blood cell count yesterday was 5.5. The pain has largely resolved. Objective - Vital Signs Vital signs: Vital Signs Temp 97.9 F 11/28/16 07:58 Pulse 65 11/28/16 07:58 Resp 12 11/28/16 07:58 BP 116/61 11/28/16 07:58 Pulse Ox 96 11/28/16 07:58 Intake & Output 11/27/16 11/28/16 11/28/16 18:59 06:59 18:59 Intake Total 320 Balance 320 Intake: Oral 320 Other: Voiding Method Toilet # Voids 3 1 - Constitutional General appearance: Present: average body habitus - Respiratory Respiratory: bilateral: CTA - Cardiovascular Rhythm: regular Heart sounds: normal: S1, S2 - Gastrointestinal Gastrointestinal Comment(s): Mild tender left lower quadrant General gastrointestinal: Present: normal bowel sounds, soft - Psychiatric Psychiatric: Present: A&O x's 3, appropriate affect, intact judgment & insight - Labs CBC & Chem 7: 11/27/16 06:49 11/28/16 06:34 Labs: Abnormal Lab Results - Last 24 Hours (Table) 11/28/16 Range/Units 06:34 Potassium 3.3 L (3.5-5.1) mmol/L Microbiology - Last 24 Hours (Table) 11/26/16 05:56 Blood Culture - Preliminary Blood No Growth after 48 hours Assessment and Plan Plan: I impression/plan: 1. Left lower quadrant abdominal pain most likely diverticular in nature 2. History of gout 3. History of hypertension 4. Psoriatic arthritis 5. Patient did not tolerate diet advanced well yesterday Plan: 1. Patient does not have an acute surgical abdomen at this time would agree with treatment with antibiotics 2. Medical management of hypertension 3. Computed tomography scan findings reviewed 4. Attempt to slowly advance diet today 5. Outpatient colonoscopy
[2016-11-28] MEDS: metroNIDAZOLE-NS PMX 500 MG in SALINE 1 100ML.BAG IVPB SCH ×4 (09:00→22:14)
[2016-11-28] MEDS ORDERED: Potassium Replacement Protocol 1 EACH MISC MISCELLANE PRN (09:07)
--- NOTE | 2016-11-28 09:10 | PN ---
DATE OF SERVICE: 11/27/2016 ATTENDING NOTE: This patient seen and examined by me yesterday on 11/27/2016. I reviewed the note of my nurse practitioner, Ms. Headley and discussed with her. Patient admitted with acute diverticulitis, abdominal pain much, tolerating a diet. Has been out of bed. On examination, afebrile, blood pressure 117/55. ABDOMEN: Mild left lower quadrant tenderness. No guarding or rigidity. LUNGS: Decreased breath sounds. INVESTIGATIONS: White count 5.5. Repeat CT scan done the day before did show diverticulitis. ASSESSMENT: 1. Acute diverticulitis in the sigmoid, failed outpatient treatment, improving. 2. Essential hypertension. PLAN: Discussed the care with the patient, at last another 24 hours of IV antibiotics. See how the patient does and go from there.
[2016-11-28] MEDS: CHOLECALCIFEROL 1,000 UNIT TAB PO SCH (12:04)
[2016-11-28] MEDS: POTASSIUM CHLORIDE 10 MEQ, LIDOCAINE 2% INJ 10 MG in SODIUM CHLORIDE 0.9% 100 ML IV SCH ×2 (12:04→14:31)
--- NOTE | 2016-11-28 16:05 | PN ---
DATE OF SERVICE: 11/28/2016 PRESENTING COMPLAINT: Abdominal pain. INTERVAL HISTORY: This patient presented with diverticulitis, failed outpatient treatment. Patient did not tolerate diet advanced well yesterday. Therefore she has had some nausea. She is lying comfortably in bed. Patient believes that she ate something that was too rich for her, so she is going to try and attempt to eat again today and see how it goes. Patient is ambulatory and ambulating in the hallways. Pain is well controlled. Review of systems done for constitutional, cardiovascular, GI and pulmonary with relevant findings as above. CURRENT MEDICATIONS: 1. Cefuroxime. 2. HydroDIURIL. 3. Dilaudid. 4. Methotrexate. 5. Metronidazole. 6. Imitrex. PHYSICAL EXAMINATION: VITAL SIGNS: Temperature 97.1, pulse 72, respiratory rate 19, blood pressure 105/53, oxygen saturation 95% on room air. GENERAL APPEARANCE: Patient lying in bed. Appears comfortable. No pain or distress noted. EYES: Pupils equal. Conjunctivae normal. NECK: JVD not raised. Mass not palpable. LUNGS: Diminished in the bases. Clear to auscultation to the upper lobes bilaterally. RESPIRATORY: Effort normal, unlabored. CARDIOVASCULAR: First and second sounds noted. No edema. ABDOMEN: Tender to the left lower quadrant. Liver and spleen not palpable. PSYCHIATRY: Alert and oriented x3. Mood and affect are normal. INVESTIGATIONS: Sodium 139, potassium 3.3. BUN 14, creatinine 0.78. ASSESSMENT: 1. Acute diverticulitis, failed outpatient treatment, improving. 2. Essential hypertension. 3. Primary osteoarthritis of multiple joints bilaterally. 4. Chronic gout. Patient is on colchicine. PLAN: Intravenous antibiotics to continue. Will advance diet again today. Surgery is cautious regarding the fact that the patient is not able to tolerate solid food. Discharge plan possibly today or tomorrow. Will follow. Patient was seen and examined by nurse practitioner, Shavon Headley, and all elements of the case were discussed with Dr. Matute.
[2016-11-29] MEDS: SODIUM CHLORIDE 0.9% 1,000 ML IV SCH ×3 (00:02→08:53)
[2016-11-29] MEDS: CEFUROXIME 1,500 MG in SODIUM CHLORIDE 0.9% 50 ML IVPB SCH ×2 (00:28→08:51)
--- NOTE | 2016-11-29 05:59 | PN ---
DATE OF SERVICE: 11/28/2016 ATTENDING NOTE: This patient was seen and examined by me earlier today. I reviewed the note of my nurse practitioner, Ms. Headley and discussed with her. Patient ( ) is much better. Tolerating a soft diet. No fever. Up to the bathroom. On examination, afebrile, blood pressure 105/53, pulse ox 95% on room air. ABDOMEN: Soft, nontender. Liver and spleen not palpable. PSYCHIATRY: Alert and oriented x3. Mood and affect normal. INVESTIGATIONS: Potassium 3.3. ASSESSMENT: 1. Acute sigmoid diverticulitis, failed outpatient treatment, clinically improving. 2. Essential hypertension. 3. Primary osteoarthritis in multiple joints, bilateral. 4. Chronic gout. Patient is on colchicine. Plan at this point continue with antibiotics, watch for another 24 hours, review a CBC in the morning. Follow with surgery.
[2016-11-29 07:22] LABS: Basophils % (A) 0 %; CH 30.6; CHCM 33.2; Eosinophils # (A) 0.4 k/uL (0-0.7); Eosinophils % (A) 7 %; HCT 32.7 % (34.0-46.0); HGB 10.6 gm/dL (11.4-16.0); Luc # (Auto) 0.14; Luc % (Auto) 3; Lymphocytes # (A) 1.7 k/uL (1.0-4.8); Lymphocytes % (A) 30 %; MCH 30.1 pg (25.0-35.0); MCHC 32.6 g/dL (31.0-37.0); MCV 92.5 fL (80.0-100.0); Mean Platelet Volume 7.1; Monocytes # (A) 0.4 k/uL (0-1.0); Monocytes % (A) 7 %; Neutrophils % (A) 54 %; RBC 3.53 m/uL (3.80-5.40); RDW 15.7 % (11.5-15.5); WBC 5.6 k/uL (3.8-10.6); WBC (Perox) 5.42
[2016-11-29 07:53] LABS: Anion Gap 8 mmol/L; Blood Urea Nitrogen 12 mg/dL (7-17); Carbon Dioxide 25 mmol/L (22-30); Chloride 106 mmol/L (98-107); Glucose 91 mg/dL (74-99); Non-African American GFR(MDRD) >60 (>60 ml/min/1.73 sqM); Sodium 139 mmol/L (137-145)
[2016-11-29 08:14] VITALS: BP 126/53; TEMP 97.7
[2016-11-29 08:21] LABS: Potassium 3.9 mmol/L (3.5-5.1)
[2016-11-29] MEDS: ALLOPURINOL 300 MG TAB PO SCH (08:56)
[2016-11-29] MEDS: ATENOLOL 50 MG TAB PO SCH (08:56)
[2016-11-29] MEDS: ASPIRIN 81 MG CHEW PO SCH (08:56)
[2016-11-29] MEDS: FOLIC ACID 1 MG TAB PO SCH (08:56)
[2016-11-29] MEDS: HYDROCHLOROTHIAZIDE 50 MG TAB PO SCH (08:56)
[2016-11-29] MEDS: metroNIDAZOLE-NS PMX 500 MG in SALINE 1 100ML.BAG IVPB SCH (09:44)
[2016-11-29 10:21] VITALS: PULSE 76; RESP 18
--- NOTE | 2016-11-29 11:34 | P.PN ---
Subjective 76-year-old female seen and evaluated sitting up in a chair tolerated diet states had a bowel movement this morning. States the abdominal pain has markedly improved. Patient is anxious to be discharged home. Patients being followed by surgical service at the request of the attending a CAT scan of the abdomen showed mid sigmoid colon consistent with diverticulitis. Patient was started on bowel rest and IV antibiotics. Patient's diet was able to be advanced and patient was tolerating without difficulty. Patient is aware that she needs to have a colonoscopy the next 6-8 weeks. Patient states that she will be returning to [place] has a primary care provider in [place] she will notify and set up with the outpatient colonoscopy Objective - Vital Signs Vital signs: Vital Signs Temp 97.7 F 11/29/16 07:00 Pulse 76 11/29/16 09:40 Resp 18 11/29/16 09:40 BP 126/53 11/29/16 07:00 Pulse Ox 100 11/29/16 07:00 Intake & Output 11/28/16 11/29/16 11/29/16 18:59 06:59 18:59 Weight 59.874 kg Other: Voiding Method Toilet Toilet Toilet # Voids 1 1 - Exam Physical exam 76-year-old female sitting up in bed does not appear in any acute distress Lungs essentially clear adequate air movement Heart S1-S2 audible regular Abdomen soft nontender denies abdominal pain one bowel movement this morning and tolerating diet Extremities no edema noted - Labs CBC & Chem 7: 11/29/16 06:43 11/29/16 06:43 Labs: Abnormal Lab Results - Last 24 Hours (Table) 11/29/16 Range/Units 06:43 RBC 3.53 L (3.80-5.40) m/uL Hgb 10.6 L (11.4-16.0) gm/dL Hct 32.7 L (34.0-46.0) % RDW 15.7 H (11.5-15.5) % Microbiology - Last 24 Hours (Table) 11/26/16 05:56 Blood Culture - Preliminary Blood No Growth after 72 hours Assessment and Plan Plan: Impression Present on admission left lower quadrant pain likely due to Q sigmoid colon diverticulitis Present on admission intractable left lower quadrant pain CAT scan of the abdomen consistent with diverticulosis Hypertension essential benign Psoriatic arthritis Plan From a surgical perspective the patient could be discharged home defer to the timing of the discharge to the attending Reinforced to the patient the need to have an outpatient colonoscopy in 6-8 weeks Antibiotics per the attending No further surgical recommendations at this time The above dictated assessment and findings were discussed with dr kori waite Impression and the plan of care have been dictated as directed. Jaci Yin nurse practitioner acting as a scribe for dr waite
[2016-11-29] MEDS ORDERED: CEFUROXIME 250 MG TAB PO SCH (11:59)
[2016-11-29] MEDS: CHOLECALCIFEROL 1,000 UNIT TAB PO SCH (12:46)
--- NOTE | 2016-11-30 08:55 | DS ---
DATE OF ADMISSION: 11/25/2016 DATE OF DISCHARGE: 11/29/2016 FINAL DIAGNOSES: 1. Acute diverticulitis, failed outpatient treatment. 2. Essential hypertension. 3. Primary osteoarthritis of multiple joints bilaterally. 4. Chronic gout. Patient is on colchicine. Consultation with Dr. Myriam Gramajo from Surgery. HOSPITAL COURSE: This is a patient who presented with diverticulitis, failed outpatient treatment. Patient was placed on IV antibiotics, cefuroxime and IV Flagyl. CT scan was done and this revealed a 10 cm long segment of proximal to mid-sigmoid colon with moderate to severe inflammation. Patient received IV fluids, diet was advanced, Surgery evaluated the patient. No surgical intervention necessary. Patient has been up and around. Tolerating her diet. Vital signs stable. Patient has moved her bowels. At this time it is reasonable to discharge the patient home. On exam, abdomen soft, mild tenderness noted. Good bowel sounds x4. No guarding, no rigidity. Liver and spleen not palpable. DISCHARGE MEDICATIONS: 1. Allopurinol 300 mg p.o. daily. 2. Aspirin 81 mg p.o. daily. 3. Atenolol 50 mg p.o. daily. 4. Cholecalciferol 2000 units p.o. daily. 5. Colchicine 0.6 mg p.o. daily p.r.n. 6. Fish oil 1200 mg per 2 capsules p.o. daily. 7. Folic acid 1 mg p.o. b.i.d. 8. Hydrochlorothiazide 50 mg p.o. daily. 9. Methotrexate 12.5 mg p.o. . 10. Sumatriptan 25 mg p.o. b.i.d. p.r.n. 11. Tri-[place] plus 2 capsules p.o. daily. 12. Ubiquinol 100 mg p.o. daily. 13. Biotin 2500 mcg p.o. daily. 14. Cefuroxime 500 mg p.o. b.i.d. 15. Ondansetron ODT 4 mg p.o. every 8 hours p.r.n. 16. Prochlorperazine 5 mg p.o. q.8h. Follow up with patient's primary care provider in 1 to 2 days. Patient should have a colonoscopy in the next 6 weeks. Discharge time more than 30 minutes including discussion and questions answered. Patient was seen and examined by nurse practitioner, Shavon Headley and all elements of the case discussed with attending, Dr. Matute.
--- NOTE | 2016-12-01 10:24 | DS ---
DATE OF ADMISSION: 11/25/2016 DATE OF DISCHARGE: 11/29/2016 ATTENDING NOTE: This lady was seen and examined by me yesterday on 11/29/2016. I reviewed the discharge summary of my nurse practitioner, Shavon Headley and agree with the same. Patient admitted with having failed outpatient treatment for diverticulitis. A CT scan did show some worsening before for the antibiotics. By the time of discharge, doing much better. Tolerating a diet. On exam: ABDOMEN: Soft, nontender. Care was discussed in detail with the patient. Patient is to follow up with the family doctor and have a colonoscopy in 6 weeks. The patient is going back to [place]. [place] planning more than 35 minutes.
[2016-12-01] MEDS ORDERED: METHOTREXATE SODIUM 2.5 MG TAB PO SCH (12:00)
== END 2016-11-29 14:26 | disposition home or self-care (01) | DRG 392 ==
LOC: EC 17:58 → 5MS5E 22:37 → 3SUR 23:03 → 6PED 23:29
PROVIDERS: ADMIT Hospitalist; ATTEND Hospitalist
DX: K57.32 Diverticulitis of large intestine without perforation or abscess without bleeding (principal); N13.30 Unspecified hydronephrosis; M06.9 Rheumatoid arthritis, unspecified; L40.50 Arthropathic psoriasis, unspecified; I10 Essential (primary) hypertension; N95.1 Menopausal and female climacteric states; M19.91 Primary osteoarthritis, unspecified site; G43.909 Migraine, unspecified, not intractable, without status migrainosus; M1A.9XX0 Chronic gout, unspecified, without tophus (tophi); Z90.710 Acquired absence of both cervix and uterus; Z88.0 Allergy status to penicillin; Z88.1 Allergy status to other antibiotic agents; Z98.42 Cataract extraction status, left eye; Z98.41 Cataract extraction status, right eye; Z79.82 Long term (current) use of aspirin; Z79.899 Other long term (current) drug therapy
CPT/HCPCS: 36415; 74000; 74177; 80048; 80053; 81003; 82150; 83605; 83690; 85025; 87040; 96361; 96365; 96375; 99285

== ENCOUNTER → 2018-02-27 | Outpatient (CLI) | payer MEDICARE ==
[2018-02-27 10:10] VITALS: BP 130/60; PULSE 79; TEMP 97.4; BMI 21.7
--- NOTE | 2018-02-27 12:07 | P.HPOB ---
History of Present Illness H&P Date: 02/27/18 Chief Complaint: Vaginal discharge since 01/10/2018 This is a 77-year-old G2 PII within LMP of 1992. She status post vaginal hysterectomy in 2013 and later cystocele and rectocele repairs in 2014. It is been about one half years since her last pelvic exam. She states she noticed a sudden onset of a vaginal discharge 01/10/2018. The discharge is fairly heavy and yellowish with mucus. She notices a slight odor but not similar to stool odor. The patient discharge started about 2 weeks after taking antibiotics for diverticulitis. She was seen at an urgent care clinic and testing for STDs and for yeast infection was done and was apparently negative. She was treated for anything at that time. The discharge did improve slightly but she continues to have it. She continues to have to change her pads after using the bathroom. She denies any significant pruritus. She is otherwise without complaints. She did have a mammogram done recently in [place]. Review of Systems She has lost about 25 pounds over the last 2 years and attributes this to diverticular problems. She denies respiratory, cardiac, or G.I. problems. She denies maltreatment or falling with injury. : she denies any significant problems with urinary leakage. Past Medical History Past Medical History: Hypertension, Osteoarthritis (OA) Additional Past Medical History / Comment(s): gout, migraines, diverticulitis, psoriatic arthritis, and IBS. 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 Her hysterectomy was done because prolapse. History of Any Multi-Drug Resistant Organisms: None Reported Past Surgical History: Hysterectomy (Vaginal 2013. Later cystocele and rectocele repairs in 2014.), Joint Replacement, Orthopedic Surgery, Tonsillectomy Additional Past Surgical History / Comment(s): BILAT cataracts, BILAT carpal tunnel, lt TKA, complete repair of abdominal vault, COLONOSCOPY 2016, PARTIAL RT KNEE REPLACEMENT Past Anesthesia/Blood Transfusion Reactions: No Reported Reaction Past Psychological History: No Psychological Hx Reported Smoking Status: Former smoker (Quit in her 30s.) Past Alcohol Use History: Occasional (4 per week, but recently decreased intake because of diverticulosis.) Past Drug Use History: None Reported Additional History: She spends 7 months of the year in [place]. She is since 2015. - Past Family History Mother Additional Family Medical History / Comment(s): Crohn's disease Medications and Allergies Home Medications Medication Instructions Recorded Confirmed Type Allopurinol [Zyloprim] 300 mg PO DAILY 02/09/16 02/27/18 History Aspirin [Adult Low Dose Aspirin EC] 81 mg PO DAILY 02/09/16 02/27/18 History Cholecalciferol [Vitamin D3] 2,000 unit PO DAILY 02/09/16 02/27/18 History Colchicine [Colcrys] 0.6 mg PO DAILY PRN 02/09/16 02/27/18 History Fish Oil/Dha/Epa [Fish Oil 1,200 2 cap PO DAILY 02/09/16 02/27/18 History mg Fish Oil] Folic Acid 1 mg PO BID 02/09/16 02/27/18 History Hydrochlorothiazide [Hydrodiuril] 50 mg PO DAILY 02/09/16 02/27/18 History Methotrexate Sodium [Methotrexate] 12.5 mg PO TH 02/09/16 02/27/18 History SUMAtriptan SUCCINATE [Imitrex] 25 mg PO BID PRN 02/09/16 02/27/18 History Tri-[place] Plus 2 cap PO DAILY 02/09/16 02/27/18 History Ubiquinol 100 mg PO BID 02/09/16 02/27/18 History Biotin 2,500 mcg PO DAILY 11/25/16 02/27/18 History Dicyclomine [Bentyl] mg PO PRN 02/27/18 History Metoprolol Succinate (ER) [Toprol mg PO DAILY 02/27/18 History XL] Allergies Allergy/AdvReac Type Severity Reaction Status Date / Time Penicillins Allergy Anaphylaxis Verified 02/27/18 10:06 levofloxacin [From Levaquin] AdvReac Severe Tendonitis Verified 02/27/18 10:06 Exam Vital Signs Temp Pulse BP 02/27/18 10:06 97.4 F L 79 130/60 Intake and Output 02/26/18 02/27/18 02/27/18 22:59 06:59 14:59 Other: Weight 63.049 kg Height 5'7", BMI 21.8. This is a well-developed well-nourished white female who is alert and oriented times 3 in no acute distress. HEENT: Within normal limits. CHEST AND LUNGS: Clear to auscultation. HEART: Regular rate and rhythm. BREASTS: deferred. ABDOMEN: Soft, nontender, without palpable masses. PELVIC EXAM: External genitalia appears normal with moderate atrophy and slight creamy discharge visible. Vagina reveals moderate atrophy with slight yellowish creamy discharge without significant order. There is no evidence of prolapse. Bimanual examination is negative for mass or tenderness. RECTAL EXAM: Rectovaginal exam is negative for mass or tenderness and is negative for occult blood. The rectovaginal septum wall thicknesses within normal limits and there are no palpable areas of thinness or fistula. EXTREMITIES: Nontender. What es are negative for trichomonas or hyphae. There are some clue cells with several white blood cells noted. IMPRESSION: 1. 77-year-old menopausal female status post vaginal hysterectomy for benign reasons. 2. Seven-week history of vaginal discharge. With evidence of bacterial vaginosis. At this time I doubt a fistula is a cause for the discharge. Severe atrophic vaginitis will also be part of the differential diagnosis. PLAN: 1. Pap smears have been discontinued. 2. She will continue to have mammograms and breast exams done with her doctor in [place]. 3. MetroGel Vag 1 applicator intravaginal QHS times 5 days. 4. Genital culture from the vaginal discharge has been obtained. 5. She does get flu shots in the fall. 6. She will call if she does not have significant improvement. I will also review the culture results with her when they are back. We can also consider a course of vaginal estrogen cream if her symptoms are not improving. 7. She will return one year or PRN. She will also follow up with her doctors in [place] for her ongoing medical care.
== END | disposition home or self-care (01) ==
LOC: WWCWWP 09:49
PROVIDERS: ATTEND Obstetrics & Gynecology
DX: N76.0 Acute vaginitis (principal)
CPT/HCPCS: 87070; 87205